=== PATIENT | female | born 1970 | race Caucasian/White ===

== ENCOUNTER 2017-01-29 12:28 | Emergency (ER) | payer OTHER ==
[~2017-01-29 12:28] MED LIST: ANTIVERT PO; DEPAKOTE250 MG; DESYREL50 MG; DESYREL50 MG DOB; ESTRACE0.5 MG PO; ESTRADIOL0.5 MG; KEFLEX500 MG PO; LORTAB 10-5001 EACH PO; MEDROL DOSEPAK4 MG DOB; NO MEDICATIONS; PROVERA10 MG; PROVERA10 MG PO; ULTRAM PO; VALACYCLOVIR500 MG PO; VALTREX PO; VALTREX500 MG; VICODIN 5/1 TAB 5/50 PO; VOLTAREN75 MG PO
== END 2017-01-29 13:12 | disposition left against medical advice (07) ==
LOC: CED 12:28
DX: Z53.21 Procedure and treatment not carried out due to patient leaving prior to being seen by health care provider (principal)

== ENCOUNTER 2017-02-05 04:59 | Emergency (ER) | payer OTHER ==
--- NOTE | ~2017-02-05 | CR126 ---
[facility] A Service [facility] RADIOLOGY TEXT RESULTS PATIENT: SAMUEL BROOKS LOCATION: SED : 66 UNIT #: [id number] AGE: [address]: Sulaiman Metcalf MD SEX: F ORDER DR: [id number] [place] [id number] E MR#: [id number] Acc #: [id number] NAME: SAMUEL BROOKS. : 1970 SEX: F STUDY DATE/TIME: 02/05/2017 6:01 UNIT: SED ROOM: STUDY DESCRIPTION: CR Foot Complete Min 3 View Lt Attending Physician: Sulaiman Metcalf M.D. Ordering Physician: Sulaiman Metcalf M.D. Primary Care Physician: [facility] MEDICAL IMAGING REPORT This report is preliminary unless electronic signature is present. REVISED REPORT SEE ADDENDUM EXAM Right foot, 02/05. INDICATION Foot pain for 1 week. Glass in the foot. FINDINGS Three views of the right foot were obtained. No fracture or malalignment is seen. There is no soft tissue gas. There is a questionable tiny radiopaque foreign body in the soft tissues near the fourth and fifth metatarsals. Correlate with site of air.. The foot is otherwise negative. IMPRESSION Potential tiny radiopaque foreign body in the soft tissues near the fourth and fifth metatarsals. Please correlate with site of injury. The rest of the foot is normal. Dictated by... Luis Peterson Jr., M.D. JACK/aurora TD: 02/05/2017 14:10 JOB #: [id number] [facility] A Service [facility] RADIOLOGY TEXT RESULTS PATIENT: SAMUEL BROOKS LOCATION: SED : 66 UNIT #: [id number] AGE: [address]: Sulaiman Metcalf MD SEX: F ORDER DR: ADDENDUM Potential radiopaque densities seen on this exam are probably artifact. They are also seen on the left foot images today. Dictated by... Luis Peterson Jr., M.D. THIS IS AN ELECTRONICALLY VERIFIED REPORT Luis Peterson Jr., M.D. at 02/07/2017 7:18 AM JACK/kg TD: 02/05/2017 14:12 JOB #: [id number] CC: [email or web address] Please Delete MEDICAL IMAGING REPORT Page 1 of 1
--- NOTE | ~2017-02-05 | CR127 ---
[facility] A Service of [facility] RADIOLOGY TEXT RESULTS PATIENT: SAMUEL BROOKS LOCATION: SED : 66 UNIT #: [id number] AGE: [address]: Sulaiman Metcalf MD SEX: F ORDER DR: [id number] [address] [address] [id number] E MR#: [id number] Acc #: [id number] NAME: SAMUEL BROOKS : 1970 SEX: F STUDY DATE/TIME: 02/05/2017 6:01 UNIT: SED ROOM: STUDY DESCRIPTION: CR Foot Complete Min 3 View Rt Attending Physician: Sulaiman Metcalf M.D. Ordering Physician: Sulaiman Metcalf M.D. Primary Care Physician: [facility] MEDICAL IMAGING REPORT This report is preliminary unless electronic signature is present. EXAM Left foot, 02/05. HISTORY Foot pain for one week, possible foreign body. Glass in the foot. FINDINGS Three views of the left foot were obtained. There is a tiny potential radiopaque foreign body near the neck of the first metatarsal. However, this is probably artifact as it is present on one of the views lateral to the foot. No soft tissue gas is seen. There are no radiopaque foreign bodies. IMPRESSION 1. The bones are normal. 2. Tiny radiopaque density appears to be artifact. This is similar to the density seen on the right foot images today as well and this likely artifact on those images. Correlate with site of injury. Foot is otherwise normal. Dictated by... Luis Peterson Jr., M.D. THIS IS AN ELECTRONICALLY VERIFIED REPORT Luis Peterson Jr., M.D. at 02/05/2017 3:48 PM RLK/aurora TD: 02/05/2017 14:11 JOB #: [id number] [facility] A Service [facility] RADIOLOGY TEXT RESULTS PATIENT: SAMUEL BROOKS LOCATION: SED : 66 UNIT #: [id number] AGE: [address]: Sulaiman Metcalf MD SEX: F ORDER DR: MEDICAL IMAGING REPORT Page 1 of 1
== END 2017-02-05 06:44 | disposition home or self-care (01) ==
LOC: SED 04:59
DX: S99.921A Unspecified injury of right foot, initial encounter (principal); S99.922A Unspecified injury of left foot, initial encounter; F31.9 Bipolar disorder, unspecified; F17.200 Nicotine dependence, unspecified, uncomplicated; W25.XXXA Contact with sharp glass, initial encounter; Y92.009 Unspecified place in unspecified non-institutional (private) residence as the place of occurrence of the external cause
CPT/HCPCS: 73630; 99283